=== PATIENT | female | born 1945 | race Caucasian/White ===

== ENCOUNTER 2017-11-11 15:55 | Inpatient (IN) | payer OTHER, MEDICARE ==
[~2017-11-11] VITALS: Ht 165.1 cm; Wt 58.2 kg
[~2017-11-11 15:55] MED LIST: ALDACTONE25 MG PO; ALDACTONE50 MG PO; ASPIR-LOW81 MG PO; ATORVASTATIN CA40 MG PO; CARDIZEM CD,CA180 MG PO; CARDIZEM CD120 M1 PO; CYANOCOBALAM1000 MCG PO; DILTIAZEM 24HR240 MG PO; EFFEXOR XR150 MG PO; EFFEXOR XR37.5 MG PO; ENULOSE10 GM/15 M PO; FUROSEMIDE20 MG PO; IBUPROFEN600 MG PO; IRON PO; IRON18 MG PO; IRON325 M1 PO; K-DUR20 MEQ PO; LACTULOSE10 GM/151 PO; LISINOPRIL-HCT1 EAC3 PO; LO-DOSE ASPIRIN81 M1 PO; METFORMIN HCL500 MG PO; MIRALAX255 GM PO; NORVASC10 MG PO; PANTOPRAZOLE SO40 MG PO; PREDNISONE10 MG PO; PREDNISONE20 MG PO; SALINE NASAL SP45 ML BOTH NARES; TRAMADOL HCL50 MG PO; TYLENOL EXTRA500 MG PO; TYLENOL REGULA325 MG PO; TYLENOL WITH C1 EACH PO; URSODIOL300 MG PO; VITAMIN D1000 UNIT PO; VITAMIN D31000 UNIT PO; XARELTO20 MG PO; XIFAXAN550 MG PO
[2017-11-11 17:43] LABS: BASOPHIL (%) 0.4 % (0-1); EOSINOPHIL (%) 3.1 % (0-5); EOSINOPHIL COUNT 0.2 K/uL (0-0.3); HEMATOCRIT 32.3 % (36.0-46.0); HEMOGLOBIN 11.7 G/DL (11.9-15.5); LYMPHOCYTE (%) 15.9 % (15-42); LYMPHOCYTE COUNT 0.8 K/uL (1.0-2.8); MCH 33.1 PG (29.0-34.0); MCHC 36.2 G/DL (30.0-36.0); MCV 91.2 FL (83-99); MONOCYTE COUNT 0.4 K/uL (0-0.8); NEUTROPHIL (%) 69.6 % (45-76); NEUTROPHIL COUNT 3.4 K/uL (1.8-6.4); RBC DIS.WIDTH-CV 17.6 % (11.8-14.6); RBC DIS.WIDTH-SD 56.1 % (39-53); RED BLOOD COUNT 3.54 M/uL (3.80-5.20); WHITE BLOOD COUNT 4.9 K/uL (4.1-10.2)
[2017-11-11 17:52] LABS: INTER. NORMALIZED RATIO 1.1
[2017-11-11 18:05] LABS: PTT 20.1 SEC (25-37)
[2017-11-11 18:06] LABS: CHLORIDE 105 mEq/L (99-109); POTASSIUM 4.7 mEq/L (3.7-5.4); SODIUM 132 mEq/L (136-147)
[2017-11-11 18:07] LABS: MAGNESIUM 1.4 mg/dL (1.3-2.7)
[2017-11-11 18:08] LABS: GLUCOSE 89 mg/dL (70-99)
[2017-11-11 18:11] LABS: TROP-I INTERPRETATION NEGATIVE; TROPONIN-I < 0.01 ng/mL (0.0-0.30)
[2017-11-11 18:12] LABS: CREATININE 0.8 mg/dL (0.6-1.3); GFR ESTIMATE (CALCULATED) > 59 mL/min/
[2017-11-11 18:13] LABS: UREA NITROGEN (BUN) 35 mg/dL (9-23)
[2017-11-11 18:31] LABS: PLAT.SUFFICIENCY DECREASED; PLATELET COUNT 81 K/uL (156-360)
[2017-11-11] MEDS ORDERED: ENULOSE10 GM/15 M PO (19:18)
[2017-11-12 02:19] VITALS: BP 136/67
[2017-11-12 04:06] VITALS: BP 117/57
[2017-11-12 06:38] LABS: BASOPHIL (%) 0.2 % (0-1); EOSINOPHIL (%) 3.8 % (0-5); EOSINOPHIL COUNT 0.2 K/uL (0-0.3); HEMATOCRIT 27.1 % (36.0-46.0); HEMOGLOBIN 9.8 G/DL (11.9-15.5); IMMATURE GRANULOCYTE (%) 1.5 % (0.0-0.7); LYMPHOCYTE COUNT 0.8 K/uL (1.0-2.8); MCH 33.2 PG (29.0-34.0); MCHC 36.2 G/DL (30.0-36.0); MCV 91.9 FL (83-99); MONOCYTE (%) 10.3 % (3-12); MONOCYTE COUNT 0.5 K/uL (0-0.8); NEUTROPHIL (%) 68.2 % (45-76); NEUTROPHIL COUNT 3.2 K/uL (1.8-6.4); RBC DIS.WIDTH-CV 17.9 % (11.8-14.6); RBC DIS.WIDTH-SD 56.3 % (39-53); RED BLOOD COUNT 2.95 M/uL (3.80-5.20); WHITE BLOOD COUNT 4.8 K/uL (4.1-10.2)
[2017-11-12 06:49] LABS: PLATELET COUNT 108 K/uL (156-360)
[2017-11-12 07:11] LABS: TROP-I INTERPRETATION NEGATIVE; TROPONIN-I < 0.01 ng/mL (0.0-0.30)
[2017-11-12 07:12] LABS: ALBUMIN 2.2 G/DL (3.2-4.8); ALKALINE PHOSPHATASE 443 IU/L (3-129); ALT (GPT) 135 IU/L (3-49); AST (GOT) 247 IU/L (2-34); CHLORIDE 106 MEQ/L (99-109); CREATININE 0.9 MG/DL (0.6-1.3); DIRECT BILIRUBIN 3.5 mg/dL (0.0-0.3); GFR ESTIMATE (CALCULATED) > 59 mL/min/; GLUCOSE 74 mg/dL (70-99); POTASSIUM 4.5 MEQ/L (3.7-5.4); SODIUM 133 MEQ/L (136-147); TOTAL BILIRUBIN 5.7 MG/DL (0.0-1.0); TOTAL PROTEIN 4.5 G/DL (6.4-8.3); UREA NITROGEN (BUN) 32 mg/dL (9-23)
[2017-11-12 07:30] VITALS: BP 114/53
[2017-11-12 11:35] VITALS: BP 120/57
[2017-11-12 16:25] VITALS: BP 125/60
[2017-11-12 20:00] VITALS: BP 120/60
[2017-11-13] VITALS: BP 115/62
[2017-11-13 04:05] VITALS: BP 128/58
[2017-11-13 07:44] VITALS: BP 117/58
[2017-11-13 12:40] VITALS: BP 111/54
[2017-11-13 23:58] VITALS: BP 101/79
[2017-11-14 04:10] VITALS: BP 102/52
[2017-11-14 07:35] VITALS: BP 102/49
[2017-11-14 11:14] VITALS: BP 117/58
[2017-11-14 15:49] VITALS: BP 133/66
[2017-11-14 20:00] VITALS: BP 129/60
[2017-11-15 00:13] VITALS: BP 139/66
[2017-11-15 04:00] VITALS: BP 111/52
[2017-11-15 07:51] VITALS: BP 99/49
[2017-11-15 11:46] VITALS: BP 143/66
[2017-11-15] MEDS ORDERED: PREDNISONE20 MG PO (12:07)
[2017-11-15] MEDS ORDERED: ONDANSETRON ODT4 MG PO (12:07)
[2017-11-15] MEDS ORDERED: MIDODRINE HCL5 MG PO (12:07)
== END 2017-11-15 14:02 | disposition hospice, home (50) | DRG 436 ==
LOC: EME 15:55 → EDOF 22:29 → 5SOUTH 22:29 → ENRESERV 22:31 → 5SOUTH 11-12 01:37
PROVIDERS: Emergency Medicine; Physician Assistant
DX: C22.0 Liver cell carcinoma (principal); I65.22 Occlusion and stenosis of left carotid artery; I95.9 Hypotension, unspecified; D69.59 Other secondary thrombocytopenia; I48.0 Paroxysmal atrial fibrillation; K72.90 Hepatic failure, unspecified without coma; K74.3 Primary biliary cirrhosis; D63.8 Anemia in other chronic diseases classified elsewhere; K76.6 Portal hypertension; I85.10 Secondary esophageal varices without bleeding; R09.02 Hypoxemia; Z66 Do not resuscitate; Z51.5 Encounter for palliative care; I10 Essential (primary) hypertension; E78.5 Hyperlipidemia, unspecified; I25.10 Atherosclerotic heart disease of native coronary artery without angina pectoris; I34.1 Nonrheumatic mitral (valve) prolapse; K59.00 Constipation, unspecified; R19.7 Diarrhea, unspecified; I86.4 Gastric varices; K21.9 Gastro-esophageal reflux disease without esophagitis; F41.9 Anxiety disorder, unspecified; F32.9 Major depressive disorder, single episode, unspecified; F03.90 Unspecified dementia, unspecified severity, without behavioral disturbance, psychotic disturbance, mood disturbance, and anxiety; I86.8 Varicose veins of other specified sites; Z79.82 Long term (current) use of aspirin; Z90.711 Acquired absence of uterus with remaining cervical stump; Z90.49 Acquired absence of other specified parts of digestive tract; Z80.1 Family history of malignant neoplasm of trachea, bronchus and lung; Z87.891 Personal history of nicotine dependence
CPT/HCPCS: 70450; 71275; 74176; 80048; 80076; 82105 90; 82140; 82272; 83735; 84484; 85025; 85379; 85610; 85730; 93005; 99281; 99284; C1753; J2270; J2405; J7030; J7042; J7512